=== PATIENT | male | born 1940 | race Caucasian/White ===

== ENCOUNTER → 2019-06-29 | Outpatient (CLI) | payer BC ==
[~2019-06-29] MED LIST: ASPI-496 PO; ATOR40TA PO; METF500T17 PO; METO50TA82 PO; NAPR250T6 PO; RANI150C PO; SILD50TA PO; TICA90TA PO
== END | disposition home or self-care (01) ==
LOC: CFH 11:30
PROVIDERS: ATTEND Internal Medicine Cardiovascular Disease
DX: I25.10 Atherosclerotic heart disease of native coronary artery without angina pectoris (principal); I49.3 Ventricular premature depolarization; R07.9 Chest pain, unspecified; Z98.61 Coronary angioplasty status
CPT/HCPCS: 78452; 78469; 93017